=== PATIENT | female | born 1950 | race Caucasian/White ===

== ENCOUNTER 2023-03-12 07:50 | Outpatient (CLI) | payer MEDICARE, OTHER ==
[2023-03-12] MEDS ORDERED: Iopamidol 300 61% 100 ML VIAL FS ONE (12:19)
== END 2023-03-12 07:51 | disposition home or self-care (01) ==
LOC: CSHCT 07:50
PROVIDERS: ATTEND Internal Medicine Hematology & Oncology
DX: C54.1 Malignant neoplasm of endometrium (principal); K86.89 Other specified diseases of pancreas; K86.2 Cyst of pancreas; Z90.710 Acquired absence of both cervix and uterus; K43.9 Ventral hernia without obstruction or gangrene
CPT/HCPCS: 74177; 82565; Q9967

== ENCOUNTER 2025-03-15 07:02 | Outpatient (CLI) | payer MEDICARE, OTHER ==
[2025-03-15 10:54] LABS: Estimated GFR - POC 47.0
[2025-03-15] MEDS ORDERED: Iopamidol 300 61% 100 ML VIAL FS ONE (12:12)
== END 2025-03-15 07:03 | disposition home or self-care (01) ==
LOC: CSHCT 07:02
PROVIDERS: ATTEND Internal Medicine Hematology & Oncology
DX: C54.1 Malignant neoplasm of endometrium (principal); K86.89 Other specified diseases of pancreas
CPT/HCPCS: 36415; 74177; 82565; Q9967